=== PATIENT | male | born 1960 | race Caucasian/White ===

== ENCOUNTER 2024-05-09 10:04 | Outpatient (CLI) | payer OTHER, SELFPAY ==
--- NOTE | 2024-05-10 15:59 | WPDPFTINT ---
PFT Procedure Performed PFT Procedure Performed Spirometry with Pre/Post Bronchodilator Plethysmography (Lung Vol) Diffusing Cap (DLCO) Flow Vol Loop PFT Interpretation This is a pulmonary function test with pre and post-bronchodilator spirometry, plethysmography and diffusing capacity. The test was performed and results interpreted in accordance with the 2019 and 2005 ATS/ERS Task Force guidelines respectively using the Global Lung Function Initiative-2012 reference equations. Patient demonstrated good effort and cooperation. Reproducibility criteria were met. The quality of the pre bronchodilator spirometry maneuver was Grade A and post bronchodilator spirometry maneuver was Grade A. Findings: Spirometry: The contour the inspiratory and expiratory flow tracing are normal. The pre bronchodilator FVC is 3.80 L, 105% predicted. The pre bronchodilator FEV1 is 2.73 L, 97% predicted. The pre bronchodilator FEV1: FVC ratio 72%. The post bronchodilator FVC is 3.94 L, representing a 4% increase. The post bronchodilator FEV1 is 2.89 L, representing a 6% increase. The post bronchodilator FEV1: FVC ratio is 73%. Plethysmography: The total lung capacity is 6.45 L, 111% predicted. The functional residual capacity is 4.42 L, 138% predicted. The residual volume is 2.35 L, 116% predicted. Diffusing capacity: The diffusing capacity unadjusted for hemoglobin and carboxyhemoglobin is 19.0, 70% predicted. The diffusing capacity adjusted for alveolar volume is 3.56, 83% predicted. Impression: The spirometry is normal without evidence of an obstructive abnormality. There is no significant improvement after inhaling a single dose of albuterol. The lung volumes are normal. The diffusing capacity unadjusted for hemoglobin and carboxyhemoglobin is mildly decreased and normalizes when adjusted for alveolar volume. There are no prior studies for comparison
== END 2024-05-09 10:05 | disposition home or self-care (01) ==
PROVIDERS: PCP Family Medicine
DX: C34.92 Malignant neoplasm of unspecified part of left bronchus or lung (principal)
CPT/HCPCS: 94060; 94726; 94729